=== PATIENT | female | born 1955 | race Caucasian/White ===

== ENCOUNTER 2018-09-22 17:08 | Emergency (ER) | payer BC ==
[2018-09-22 17:30] VITALS: BP 139/91
--- NOTE | 2018-09-22 18:16 | ER Document Report ---
ED Medical Screen (RME) - General Chief Complaint: Chest Pain Stated Complaint: CHEST PAIN Time Seen by Provider: 09/22/18 18:10 Primary Care Provider: SUSI CURTIS [Primary Care Provider] - Follow up as needed TRAVEL OUTSIDE OF THE [place] IN LAST 30 DAYS: No - HPI Notes: 09/22/18 18:14 Patient is a 62-year-old female with a history of hypertension and hypercholesterolemia who presents to the emergency department complaining of sternal chest pain that will occasionally radiate to the left shoulder there is been constant since Friday. Patient describes the discomfort as a tightness and she notices some increase in her symptoms after she eats. No significant cardiopulmonary medical history. Denies any prolonged immobilization, distance travel, recent surgery/trauma, personal cancer history, hormone use, smoking, or previous DVT/PE. Denies any headache, fever, URI, sore throat, palpitations, syncope, cough, shortness of breath, wheeze, dyspnea, abdominal pain, nausea/ vomiting/diarrhea, urinary retention, dysuria, hematuria, or rash. I have treated and performed a rapid initial assessment of this patient. A comprehensive ED assessment and evaluation of the patient, analysis of test results and completion of medical decision making process will be conducted by additional ED providers. PHYSICAL EXAMINATION: GENERAL: Well-appearing, well-nourished and in no acute distress. A&Ox4. Answers questions appropriately. LUNGS: Breath sounds clear to auscultation bilaterally and equal. No wheezes rales or rhonchi. HEART: Regular rate and rhythm without murmurs, rubs, gallops. ABDOMEN: Soft, nondistended abdomen. No guarding, no rebound. Normal bowel sounds present. No CVA tenderness bilaterally. Nontender to palpation (cannot elicit thorough abd exam w/o table, however). Extremities: No cyanosis, clubbing, or edema b/l. Heron negative. No lower extremity asymmetry. NEUROLOGICAL: Normal speech, normal gait. PSYCH: Normal mood, normal affect. - Related Data Allergies/Adverse Reactions: No Known Allergies Allergy (Unverified 09/22/18 17:25) Physical Exam - Vital signs Vitals: Temp Pulse Resp BP Pulse Ox 98.4 F 80 18 139/91 H 97 09/22/18 17:28 09/22/18 17:28 09/22/18 17:28 09/22/18 17:28 09/22/18 17:28 Course - Vital Signs Vital signs: Temp Pulse Resp BP Pulse Ox 98.4 F 80 18 139/91 H 97 09/22/18 17:28 09/22/18 17:28 09/22/18 17:28 09/22/18 17:28 09/22/18 17:28 Doctor's Discharge - Discharge Referrals: LOCALMD,NO [Primary Care Provider] - Follow up as needed
--- NOTE | 2018-09-22 18:39 | RADIOLOGY REPORT (SQ) ---
EXAM DESCRIPTION: CHEST 2 VIEWS COMPLETED DATE/TIME: 09/22/2018 6:31 pm REASON FOR STUDY: CP COMPARISON: None. EXAM PARAMETERS: NUMBER OF VIEWS: two views TECHNIQUE: Digital Frontal and Lateral radiographic views of the chest acquired. RADIATION DOSE: NA LIMITATIONS: none FINDINGS: LUNGS AND PLEURA: No opacities, masses or pneumothorax. No pleural effusion. MEDIASTINUM AND HILAR STRUCTURES: No masses or contour abnormalities. HEART AND VASCULAR STRUCTURES: Heart normal size. No evidence for failure. BONES: No acute findings. HARDWARE: None in the chest. OTHER: No other significant finding. IMPRESSION: NO ACUTE RADIOGRAPHIC FINDING IN THE CHEST. TECHNICAL DOCUMENTATION: JOB ID: [id number] [employer]- All Rights Reserved Reading location - IP/workstation name: [email or web address]
[2018-09-22 19:37] LABS: ABSOLUTE BASOPHILS # (AUTO) 0.1 10^3/uL (0.0-0.2); ABSOLUTE EOSINOPHILS # (AUTO) 0.2 10^3/uL (0.0-0.6); ABSOLUTE LYMPHOCYTES (AUTO) 2.5 10^3/uL (0.5-4.7); ABSOLUTE MONOCYTES (AUTO) 0.8 10^3/uL (0.1-1.4); ABSOLUTE NEUT (AUTO) 8.1 10^3/uL (1.7-8.2); BASOPHILS % (AUTO) 0.8 % (0-2); EOSINOPHILS % (AUTO) 1.4 % (0-6); HEMATOCRIT 46.2 % (36.0-47.0); HEMOGLOBIN 15.6 g/dL (12.0-15.5); LYMPHOCYTES % (AUTO) 21.5 % (13-45); MEAN CORPUSCULAR HEMOGLOBIN 29.6 pg (27.0-33.4); MEAN CORPUSCULAR HGB CONC 33.7 g/dL (32.0-36.0); MEAN CORPUSCULAR VOLUME 88 fl (80-97); PLATELET COUNT 404 10^3/uL (150-450); RED BLOOD COUNT 5.26 10^6/uL (3.72-5.28); RED CELL DISTRIBUTION WIDTH 13.8 % (11.5-14.0); SEGMENTED NEUTROPHILS % (AUTO) 69.3 % (42-78); TOTAL CELLS COUNTED % (AUTO) 100 %; WHITE BLOOD COUNT 11.8 10^3/uL (4.0-10.5)
[2018-09-22 19:56] LABS: ALANINE AMINOTRANSFERASE 67 U/L (9-52); ALBUMIN 4.6 g/dL (3.5-5.0); ALKALINE PHOSPHATASE 130 U/L (38-126); ANION GAP 13 (5-19); ASPARTATE AMINO TRANSFERASE 46 U/L (14-36); BILIRUBIN,DIRECT 0.2 mg/dL (0.0-0.4); BILIRUBIN,TOTAL 0.5 mg/dL (0.2-1.3); BLOOD UREA NITROGEN 18 mg/dL (7-20); CARBON DIOXIDE 28 mmol/L (22-30); CHLORIDE 101 mmol/L (98-107); GLUCOSE 90 mg/dL (75-110); POTASSIUM 4.2 mmol/L (3.6-5.0); SODIUM 141.9 mmol/L (137-145)
--- NOTE | 2018-09-22 23:28 | EKG REPORT ---
SEVERITY:- OTHERWISE NORMAL ECG - SINUS RHYTHM BORDERLINE LEFT AXIS DEVIATION : Confirmed by: Janette Garcia 22-Sep-2018 23:27:45
--- NOTE | 2018-09-22 23:43 | ER Document Report ---
ED Cardiac - General Chief Complaint: Chest Pain Stated Complaint: CHEST PAIN Time Seen by Provider: 09/22/18 18:10 Notes: Patient is a 62-year-old female who presents the emergency department with a chief complaint of substernal chest pain. Her symptoms started 4 days ago. She was seen by her primary care provider today and was referred to the emergency department to rule out an acute myocardial infarction. She is chest pain-free at the time of my assessment. States that her doctor had mentioned that she could possibly have GERD. Denies any shortness of breath, tearing feeling in her chest, shortness of breath, difficulty breathing, nausea, vomiting, or any symptoms. TRAVEL OUTSIDE OF THE [place] IN LAST 30 DAYS: No - Related Data Allergies/Adverse Reactions: No Known Allergies Allergy (Unverified 09/22/18 17:25) Past Medical History - Social History Smoking Status: Former Smoker Family History: Reviewed & Not Pertinent Patient has suicidal ideation: No Patient has homicidal ideation: No - Past Medical History Cardiac Medical History: Reports: Hx Hypercholesterolemia, Hx Hypertension Renal/ Medical History: Denies: Hx Peritoneal Dialysis GI Medical History: Reports: Hx Gastroesophageal Reflux Disease Musculoskeletal Medical History: Reports Hx Arthritis Past Surgical History: Reports: Hx Tubal Ligation Review of Systems - Review of Systems Notes: REVIEW OF SYSTEMS: CONSTITUTIONAL : Denies recent illness. Denies recent unintentional weight loss. Denies fever, chills, or sweats. EENT: Denies eye, ear, throat, or mouth pain, discharge, or symptoms. Denies nasal or sinus congestion. CARDIOVASCULAR: See HPI RESPIRATORY: Denies shortness of breath, cough, congestion, difficulty breathing , or wheezing. GASTROINTESTINAL: Denies nausea, vomiting, and diarrhea. Denies abdominal pain. Denies constipation. GENITOURINARY: Denies difficulty urinating, burning, blood in urine, urgency or frequency. MUSCULOSKELETAL: Denies neck and back pain. Denies joint pain or swelling. SKIN: Denies rash, itchiness, or lesions HEMATOLOGIC : Denies easy bruising or bleeding. LYMPHATIC: Denies swollen, painful, enlarged glands. NEUROLOGICAL: Denies no numbness or tingling denies weakness. Denies headache. Denies altered mental status. Denies alteration in speech. PSYCHIATRIC: Denies stress, anxiety, alteration in sleep patterns, or depression. All other systems reviewed and negative. Physical Exam - Vital signs Vitals: Temp Pulse Resp BP Pulse Ox 98.4 F 80 18 139/91 H 97 09/22/18 17:28 09/22/18 17:28 09/22/18 17:28 09/22/18 17:28 09/22/18 17:28 - Notes Notes: PHYSICAL EXAMINATION: GENERAL: Appears well, healthy, well-nourished, no acute distress. HEAD: Normocephalic, atraumatic. EYES: PERRL, conjunctiva normal, all extraocular movements intact, sclera nonicteric ENT: Moist mucous membranes. NECK: Supple, no noticeable swelling, redness, rash. Normal range of motion. LUNGS: Equal breath sounds bilaterally and clear to auscultation. No wheezes rales or rhonchi. CARDIOVASCULAR: S1-S2, regular rate, regular rhythm. Radial pulses 2+, normal. ABDOMEN: Normoactive bowel sounds. Soft, nontender, no guarding, no rebound tenderness, and no masses palpated. EXTREMITIES: Normal strength and range of motion, no pitting or edema. No cyanosis. NEUROLOGICAL: Moves all extremities upon command. Strength 5/5 in all extremiti es. PSYCH: Normal mood, normal affect. SKIN: Warm, dry. No rash, lesions, ulcerations noted. Normal skin turgor. Course - Re-evaluation Re-evalutation: 09/22/18 23:45 Differential diagnosis for the patient's chest pain includes ischemic chest pain (STEMI, NSTEMI, or unstable angina), pulmonary embolism, aortic dissection, per icarditis, chest wall pain. Based off patient's physical exam, history, EKG that does not show ST depressions or elevations, and troponin, the patient's heart score is 3 or less. Chest x-ray is negative for pneumonia, widened mediastinum, or pneumothorax. I do not suspect aortic dissection due to history, symmetrical pulses, chest x- ray, and vital signs. HEART Score: History:0 EK Age:1 Risk Factors: 1 Troponin:0 Total: 2 I have discussed with the patient the risk factors, age, and diagnostic studies. Based on these factors, the likelihood of the patient's chest pain being from a heart attack is a very low. Patient is able to make decisions for themself and verbalized understanding that their chest pain is most likely not due to heart attack. The patient has chosen to follow-up with a river boat captain in regards to their chest pain. Verbal instructions for return to the emergency department was given, and patient verbalized understanding and will be discharged. - Vital Signs Vital signs: Temp Pulse Resp BP Pulse Ox 98.4 F 80 18 139/91 H 97 09/22/18 17:28 09/22/18 17:28 09/22/18 17:28 09/22/18 17:28 09/22/18 17:28 - Laboratory Result Diagrams: 09/22/18 19:12 09/22/18 19:12 Laboratory results interpreted by me: 09/22/18 09/22/18 19:12 19:12 WBC 11.8 H Hgb 15.6 H AST 46 H ALT 67 H Alkaline Phosphatase 130 H Discharge - Discharge Clinical Impression: Chest pain Qualifiers: Chest pain type: other chest pain Qualified Code(s): R07.89 - Other chest pain Condition: Stable Disposition: HOME, SELF-CARE Instructions: Reflux Disease (GERD) ([facility]) Additional Instructions: You are seen today in the emergency department for chest pain. Your labs are normal. Please follow-up with your primary care provider in regards to this visit. You have been given Pepcid, medication to help with heartburn. Please let your primary care provider know that you are on this medication. If you develop shortness of breath, difficulty breathing, chest pain, or have any symptoms that are worrisome to you, please return immediately to the emergency department. Prescriptions: Famotidine [Pepcid 20 mg Tablet] 20 mg PO BID #60 tablet
== END 2018-09-23 00:04 | disposition home or self-care (01) ==
LOC: ER 17:08
DX: R07.2 Precordial pain (principal); I10 Essential (primary) hypertension; Z87.891 Personal history of nicotine dependence; Z87.19 Personal history of other diseases of the digestive system
CPT/HCPCS: 36415; 71046; 80053; 84484; 85025; 93005; 93010; 99285

== ENCOUNTER 2019-12-12 08:01 | Emergency (ER) | payer BC ==
[2019-12-12] MEDS ORDERED: IBUPROFEN 600 MG TABLET PO ONE (09:12)
--- NOTE | 2019-12-12 09:13 | ER Document Report ---
HPI - HPI Time Seen by Provider: 12/12/19 08:40 Pain Level: 3 Context: Patient is a 63-year-old female who presents the emergency department with a chief complaint of bilateral wrist pain. Patient states that she was helping dock a boat and when that was being pulled and she ended up getting her foot caught and ended up falling on both her wrists. Her wrists were outstretched. Patient states that she has pain to both of them. She took some ibuprofen at 230 this morning and states that the ibuprofen is wearing off. Patient has a history of GERD and arthritis. - ROS Systems Reviewed and Negative: Yes All other systems reviewed and negative - CONSTITUTIONAL Constitutional: DENIES: Fever, Chills - MUSCULOSKELETAL Musculoskeletal: REPORTS: Extremity pain - bilateral wrist - DERM Skin Color: Normal Skin Problems: None Past Medical History - Social History Smoking Status: Never Smoker Chew tobacco use (# tins/day): No Frequency of alcohol use: Social Drug Abuse: None Family History: Reviewed & Not Pertinent Patient has homicidal ideation: No - Past Medical History Cardiac Medical History: Reports: Hx Hypercholesterolemia, Hx Hypertension Renal/ Medical History: Denies: Hx Peritoneal Dialysis GI Medical History: Reports: Hx Gastroesophageal Reflux Disease Musculoskeletal Medical History: Reports Hx Arthritis Past Surgical History: Reports: Hx Tubal Ligation Vertical Provider Document - CONSTITUTIONAL Agree With Documented VS: Yes Exam Limitations: No Limitations General Appearance: No Apparent Distress - INFECTION CONTROL TRAVEL OUTSIDE OF THE [place] IN LAST 30 DAYS: No - HEENT HEENT: Atraumatic, Normocephalic, PERRLA - NECK Neck: Normal Inspection - RESPIRATORY Respiratory: Breath Sounds Normal, No Respiratory Distress - CARDIOVASCULAR Cardiovascular: Regular Rate, Regular Rhythm Pulses: Normal: Radial - MUSCULOSKELETAL/EXTREMETIES Musculoskeletal/Extremeties: FROM, Tender - Bilateral wrists at anatomical snuffbox area. Tenderness to the left lateral hand., Edema - Mild bilateral wrists. negative: Eccymosis - NEURO Level of Consciousness: Awake, Alert, Appropriate Motor/Sensory: No Motor Deficit, No Sensory Deficit - DERM Integumentary: Warm, Dry, No Rash Course - Re-evaluation Re-evalutation: 12/12/19 10:20 Patient's x-ray show a triquetrum fracture on the right side. Patient has pain to the anatomical snuffbox area of her left wrist. We will place the patient in an ulnar gutter splint on the right and a thumb spica on the left. Patient is able to flex and extend all digits with no difficulty. Capillary refill less than 3 seconds. Radial pulse 2+. No vascular compromise noted. Patient will follow-up with orthopedics in regards to this visit. She is in agreement with this plan. Follow-up precautions were given. Verbal discharge instructions were given to the patient. They verbalized understanding. They are stable for discharge. - Vital Signs Vital signs: Temp Pulse Resp BP Pulse Ox 98.5 F 74 19 137/84 H 97 12/12/19 08:10 12/12/19 08:10 12/12/19 08:10 12/12/19 08:10 12/12/19 08:10 Procedures - Immobilization Right wrist Pre-Proc Neuro Vasc Exam: Normal Immobilizer type: Ulnar Performed by: PCT Post-Proc Neuro Vasc Exam: Normal, Unchanged from pre-exam Alignment checked and good: Yes Left Wrist Pre-Proc Neuro Vasc Exam: Normal Immobilizer type: Thumb spica Performed by: PCT Post-Proc Neuro Vasc Exam: Normal, Unchanged from pre-exam Alignment checked and good: Yes Discharge - Discharge Clinical Impression: Fracture of triquetrum of right wrist Qualifiers: Encounter type: initial encounter Fracture type: closed Fracture alignment: nondisplaced Qualified Code(s): S62.114A - Nondisplaced fracture of triquetrum [cuneiform] bone, right wrist, initial encounter for closed fracture Fracture of scaphoid bone of left wrist Qualifiers: Encounter type: initial encounter Scaphoid bone location: unspecified portion of scaphoid Fracture type: closed Fracture alignment: nondisplaced Qualified Code(s): S62.002A - Unspecified fracture of navicular [scaphoid] bone of left wrist, initial encounter for closed fracture Condition: Stable Disposition: HOME, SELF-CARE Additional Instructions: You were seen today in the emergency department for wrist pain to both your wri sts. You have a fracture that was confirmed on x-ray of your triquetrum bone. This is a bone in your wrist. You were placed in a splint. Please keep the splint on until you are seen by orthopedics. You also have tenderness to your left wrist at the anatomical snuffbox area. This is suspicious for a possible scaphoid fracture. You were placed in a splint on your left wrist also. Please follow-up with orthopedics in the next 3 to 5 days. Continue to take ibuprofen 600 mg every 6 hours. If you take ibuprofen, make sure you take your Pepcid. Referrals: LICHA SPEARS, CHILD WELFARE CONSULTANT-C [Primary Care Provider] - Follow up as needed TAMMY MCCARTHY MD [ACTIVE PROVISIONAL STAFF] - Follow up in 3-5 days JEANNINE GENTILE DO [ACTIVE STAFF] - Follow up in 3-5 days JASON LOPEZ JR, DO [ACTIVE PROVISIONAL STAFF] - Follow up in 3-5 days
--- NOTE | 2019-12-12 09:18 | RADIOLOGY REPORT (SQ) ---
EXAM DESCRIPTION: WRIST BILATERAL 3 VIEWS IMAGES COMPLETED DATE/TIME: 12/12/2019 8:34 am REASON FOR STUDY: fall injury COMPARISON: None. NUMBER OF VIEWS: Six views. TECHNIQUE: AP, lateral, and oblique radiographic images acquired of the right and left wrist. LIMITATIONS: None. FINDINGS: MINERALIZATION: Normal. BONES: Fracture of the dorsal margin of the right triquetrum. No definite fracture identified in the left wrist. SOFT TISSUES: No foreign body. OTHER: No other significant finding. IMPRESSION: Fracture right triquetrum. TECHNICAL DOCUMENTATION: JOB ID: [id number] [employer]- All Rights Reserved Reading location - IP/workstation name: [email or web address]
[2019-12-12 11:04] VITALS: BP 147/89
== END 2019-12-12 11:04 | disposition home or self-care (01) ==
LOC: ER 08:01
DX: S62.114A Nondisplaced fracture of triquetrum [cuneiform] bone, right wrist, initial encounter for closed fracture (principal); S62.002A Unspecified fracture of navicular [scaphoid] bone of left wrist, initial encounter for closed fracture; X50.0XXA Overexertion from strenuous movement or load, initial encounter; W18.39XA Other fall on same level, initial encounter; E78.00 Pure hypercholesterolemia, unspecified; I10 Essential (primary) hypertension
CPT/HCPCS: 99283